=== PATIENT | female | born 1965 | race African-American/Black ===

== ENCOUNTER → 2017-05-23 | Outpatient (CLI) | payer OTHER ==
[~2017-05-23] MED LIST: ACETAMINOPHEN325 MG PO; ASPIRIN81 MG PO; BENADRYL PO; CELEXA20 MG PO; FERROUS SULFATE PO; FLEXERIL PO; IBUPROFEN PO; JANUVIA PO; K-DUR20 ME1 PO; LASIX20 MG PO; LIPITOR40 MG PO; LISINOPRIL20 MG PO; METFORMIN HCL500 M3 PO; METHOCARBAMOL500 MG PO; NEURONTIN300 MG PO; ULTRAM PO; VOLTAREN75 MG PO; ZESTRIL10 M1 PO
--- NOTE | ~2017-05-23 | CR169 ---
[facility] A Service of [facility] & [facility] RADIOLOGY TEXT RESULTS PATIENT: LADY MORA LOCATION: [facility] : 65 UNIT #: [id number] AGE: [address]: ANA ROSA CEDENO APRN SEX: F ORDER DR: [id number] [facility] [address] [place], [place] [address] [id number] O MR#: [id number] Acc #: [id number] NAME: LADY MORA : 1965 SEX: F STUDY DATE/TIME: 05/23/2017 18:36 UNIT: [facility] ROOM: STUDY DESCRIPTION: CR Knee 2 Views Lt Attending Physician: Ana Rosa Cedeno Aprn Referring Physician: Ana Rosa Cedeno Aprn Ordering Physician: Ana Rosa Cedeno Aprn Primary Care Physician: Ana Rosa Cedeno Aprn MEDICAL IMAGING REPORT This report is preliminary unless electronic signature is present EXAM Left knee HISTORY Left knee pain for the past week. No known trauma TECHNIQUE 2 views of the knee were obtained. FINDINGS There is a small osteophyte at the upper patellar pole. There is a small osteophyte along the medial joint line at the tibial plateau. There is no evidence of fracture, osteochondral fragment or chondrocalcinosis. No erosions are seen. There is no evidence of joint effusion. IMPRESSION Mild degenerative changes medial compartment and patellofemoral joint. Otherwise negative. Dictated by... Simon Addison M.D. THIS IS AN ELECTRONICALLY VERIFIED REPORT Simon Addison M.D. at 05/24/2017 4:49 PM LINDA/radha TD: 05/24/2017 13:49 JOB #: [id number] MEDICAL IMAGING REPORT Page 1 of 1 COPY
--- NOTE | ~2017-05-23 | CR170 ---
[facility] A Service of [facility] RADIOLOGY TEXT RESULTS PATIENT: LADY MORA LOCATION: [facility] : 65 UNIT #: [id number] AGE: [address]: ANA ROSA CEDENO APRN SEX: F ORDER DR: [id number] [facility] [address] [place], [place] [address] [id number] O MR#: [id number] Acc #: [id number] NAME: LADY MORA : 1965 SEX: F STUDY DATE/TIME: 05/23/2017 18:37 UNIT: [facility] ROOM: STUDY DESCRIPTION: CR Knee 2 Views Rt Attending Physician: Ana Rosa Cedeno Aprn Referring Physician: Ana Rosa Cedeno Aprn Ordering Physician: Ana Rosa Cedeno Aprn Primary Care Physician: Ana Rosa Cedeno Aprn MEDICAL IMAGING REPORT This report is preliminary unless electronic signature is present EXAM Right knee HISTORY Right knee pain for past week with no known trauma. TECHNIQUE Two views of the knee were obtained. FINDINGS Two views of the knee show moderate medial compartment narrowing with joint line osteophytes and mild compartmental narrowing in the lateral compartment with osteophyte formation. There is a moderately large osteophyte at the upper patellar pole. There is a small joint effusion. The proximal aspect of the infrapatellar tendon is ossified. No acute erosions or osteochondral fragments are seen. IMPRESSION Moderately severe osteoarthritis in all 3 compartments, worst in the medial compartment. No acute bony abnormalities are seen. Dictated by... Simon Addison M.D. THIS IS AN ELECTRONICALLY VERIFIED REPORT Simon Addison M.D. at 05/24/2017 4:49 PM RLF/chas TD: 05/24/2017 13:49 JOB #: [id number] MEDICAL IMAGING REPORT [facility] A Service of [facility] RADIOLOGY TEXT RESULTS PATIENT: LADY MORA LOCATION: [facility] #: [id number] : [birth year] UNIT #: [id number] AGE: [address]: ANA ROSA CEDENO APRN SEX: F ORDER DR: Page 1 of 1 COPY
== END | disposition home or self-care (01) ==
LOC: CRAD 18:05
DX: M25.561 Pain in right knee (principal); M25.562 Pain in left knee; M17.11 Unilateral primary osteoarthritis, right knee
CPT/HCPCS: 73560

== ENCOUNTER 2017-06-09 18:19 | Observation (INO) | payer OTHER ==
[~2017-06-09] VITALS: Ht 167.6 cm; Wt 112.5 kg
--- NOTE | ~2017-06-09 | CT71 ---
[facility] A Service of [facility] RADIOLOGY TEXT RESULTS PATIENT: LADY MORA LOCATION: [facility] 338-01 : 65 UNIT #: [id number] AGE: [address]: Fouzia Ambrocio MD SEX: F ORDER DR: [id number] [facility] [address] [place], [place] [address] [id number] I MR#: [id number] Acc #: [id number] NAME: LADY MORA : 1965 SEX: F STUDY DATE/TIME: 06/09/2017 22:03 UNIT: [facility] ROOM: 20809 STUDY DESCRIPTION: CT Head Wo Contrast Attending Physician: Raza Irizarry M.D. Ordering Physician: Jose Marcelo D.O. Primary Care Physician: Ana Rosa Dorsey Aprn MEDICAL IMAGING REPORT This report is preliminary unless electronic signature is present EXAM CT head without contrast INDICATIONS Dizziness after a fall on 06/08/[address] of the head The CT exam was performed with one or more of the following radiation dose reduction techniques: automatic exposure control, adjustment of mA and/or kV according to patient size, and iterative reconstruction. COMPARISON None FINDINGS No acute hemorrhage, abnormal mass effect, extraaxial fluid collection or hydrocephalus. No evidence for an acute or early subacute large territory infarct. No depressed calvarial fracture. Paranasal sinuses, mastoid air cells clear. IMPRESSION No acute intracranial findings. Dictated by... Mich Miller M.D. THIS IS AN ELECTRONICALLY VERIFIED REPORT Mich Miller M.D. at 06/10/2017 10:03 PM EED/jen [facility] A Service [facility] RADIOLOGY TEXT RESULTS PATIENT: LADY MORA LOCATION: [facility] 338-01 : [birth year] UNIT #: [id number] AGE: [address]: Fouzia Ambroico MD SEX: F ORDER DR: TD: 06/10/2017 09:16 JOB #: [id number] MEDICAL IMAGING REPORT Page 1 of 1 COPY
--- NOTE | ~2017-06-09 | CR72 ---
[facility] A Service of [facility] & [facility] RADIOLOGY TEXT RESULTS PATIENT: LADY MORA LOCATION: [facility] [id number] : 65 UNIT #: [id number] AGE: [address]: Raza Irizarry MD SEX: F ORDER DR: [id number] [facility] [address] [place], [place] [address] [id number] I MR#: [id number] Acc #: [id number] NAME: LADY MORA : 1965 SEX: F STUDY DATE/TIME: 06/09/2017 20:35 UNIT: [facility] ROOM: 23569 STUDY DESCRIPTION: CR Chest Single View Portable Attending Physician: Raza Irizarry M.D. Ordering Physician: Jose Marcelo D.O. Primary Care Physician: Ana Rosa Dorsey Aprn MEDICAL IMAGING REPORT This report is preliminary unless electronic signature is present EXAM Single view chest INDICATION Dizziness. Shortness of air. FINDINGS Single portable AP view of the chest without comparison. The heart and mediastinal contours are normal. Lungs are clear. No pleural effusion. IMPRESSION No acute cardiopulmonary findings. Dictated by... Panchito Wayne M.D. THIS IS AN ELECTRONICALLY VERIFIED REPORT Panchito Wayne M.D. at 06/10/2017 8:56 AM FELISHA/nelly TD: 06/10/2017 08:53 JOB #: [id number] MEDICAL IMAGING REPORT Page 1 of 1 COPY
--- NOTE | ~2017-06-09 | HP ---
Unit #: [id number] #: [id number] Patient: LADY BOSWELL [id number] [address] [place], [place] [address] [id number] I MR#: [id number] NAME: LADY BOSWELL ROOM: 20763 Age: 51 Sex: F Admission Date: 06/10/2017 : 1965 Attending Physician: Raza Irizarry M.D. Primary Care Physician: Ana Rosa Dorsey Aprn HISTORY AND PHYSICAL CHIEF COMPLAINT Lightheadedness. HISTORY OF PRESENT ILLNESS Ms. Boswell is a 51-year-old -Citizen Of [place] female who presents to the ER for above. The patient states yesterday she began feeling lightheaded but denies any true vertigo. She had a few episodes of it at home and she has had it since beginning several new medications last as will be outlined below. Yesterday, she was walking down the stairs to do laundry when she felt lightheaded, tripped and fell down the stairs. She denies any loss of consciousness but has subsequently said she is having some right neck pain primarily with turning the neck. She had no associated chest pain, no palpitations and states she is chronically short of breath with exertion since she has smoked for quite some time. She states she became concerned and, thus, presented to the emergency department. Upon presentation here, the patient's vital signs were all stable. Physical exam revealed some tenderness to palpation of the trapezius muscle of the right side but, otherwise, examination was unremarkable. White blood cell count was elevated at 16.5 and glucose was 147. She states she is not really dizzy now. She is still complaining of right neck pain. She did undergo CT scan of the head which, per ER notes, was unremarkable. Unfortunately, I am unable to get DR to pull up to confirm if this is the case. Chest x-ray was reportedly also normal. The patient was started on lisinopril, Celexa, metformin, Januvia, Lipitor, Diclofenac and methocarbamol last . She states she has not taken any methocarbamol. She states she has had headaches after taking the diabetic meds and she has only had lightheadedness since beginning these meds as well. She also notes that she took several days to take the meds because "she doesn't think anything is wrong with her." However, her aunt on and when her aunt she decided she better start taking the medicines. She states she has been under a lot of stress given several family members have been ill lately. PAST MEDICAL HISTORY 1. Recently diagnosed hypertension. 2. Recently diagnosed diabetes mellitus type 2, noninsulin requiring. Hemoglobin A1c is not available. 3. Hyperlipidemia. 4. Obstructive sleep apnea. 5. Per record review from a note from Dr. 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 Unit #: [id number] #: [id number] Patient: LADY BOSWELL PAST SURGICAL HISTORY 1. Cyst removal of the right flank at age 20. 2. Epidural blocks of the back. ALLERGIES None. The patient states she took morphine once and developed a rash but has had it since then and never developed recurrent rash. MEDICATIONS Home medications which are new include: 1. Lisinopril 20 mg daily. 2. Celexa 20 mg daily. 3. Metformin 500 mg b.i.d. 4. Januvia 100 mg daily. 5. Lipitor 40 mg daily. 6. Diclofenac 75 mg b.i.d. 7. Methocarbamol 500 mg p.o. t.i.d. FAMILY HISTORY Significant for stroke in both of patient's brothers. Obstructive sleep apnea, colon cancer, coronary artery disease and hypertension also run in the family. Per record review, patient's brother also has narcolepsy. SOCIAL HISTORY The patient has smoked over a pack of cigarettes per day for greater than almost 35 to 40 years. However, she has now cut down to six cigarettes over the past several days. She does have children. I am uncertain of employment status. No illicit drug use, no alcohol use. REVIEW OF SYSTEMS Again, some vision changes that are chronic for which she is being seen by ophthalmology in the near future. No palpitations, no chest pain. Chronic shortness of breath on exertion. No constipation, diarrhea, melena. She has had one episode of hematochezia with blood on the tissue only after a bowel movement. She has chronic knee pain for which she is being seen by Dr. Ramos with plans for some sort of surgical procedure later this week. No new skin rashes. No new tingling, numbness, weakness of extremities. She denies any lightheadedness now. Otherwise, ten point review of systems is negative. PHYSICAL EXAMINATION VITAL SIGNS: Temperature 98.0, blood pressure 125/80, pulse rate 75, respiratory rate 18. Oxygen saturation is 98% on room air. BMI is 40. GENERAL: The patient is awake, alert, oriented x3. No acute distress. HEENT: Pupils equally round, reactive to light bilaterally. Anicteric sclerae. No conjunctival pallor. Oropharynx with moist mucous membranes. No erythema or exudate. NECK: Supple. No lymphadenopathy, no thyromegaly, no JVD. Increased neck diameter noted. HEART: Regular rate and rhythm without murmur, rub or gallop. LUNGS: Mildly diminished bilaterally but otherwise clear without wheezes, rhonchi or crackles. ABDOMEN: Obese, soft, nontender, nondistended. Positive bowel sounds. No appreciable hepatosplenomegaly. EXTREMITIES: No cyanosis, clubbing, or edema. Pedal pulses 2/4. SKIN: Warm, moist, without rash. NEUROLOGIC: Cranial nerves II-XII are intact. Sensation, strength and deep tendon reflexes are all normal. Gait was not assessed. Cerebellar Unit #: [id number] #: [id number] Patient: LADY BOSWELL function appears intact as well. DIAGNOSTIC STUDIES LABORATORY: Lab work done in the emergency department last night includes white blood cell count of 16.5, hemoglobin 15.1, platelet count 288,000. Differential reveals 7% bands. Troponin was negative. CMP reveals a sodium of 138, potassium 4.2, chloride 106, bicarb 28, BUN 12, creatinine 0.9, glucose of 147. LFTs, albumin, bilirubin all normal. Urinalysis is also unremarkable. CARDIOVASCULAR: EKG in the emergency department reveals normal sinus rhythm with peaking of the P wave in lead II. IMAGING: CT scan of the head and chest x-ray in the emergency department were also reportedly unremarkable but, again, I cannot confirm this with DR. ASSESSMENT 1. Lightheadedness. 2. Status post fall without loss of consciousness. 3. Right neck strain. 4. Recently diagnosed hypertension. 5. Recently diagnosed diabetes mellitus type 2. 6. Recently diagnosed hyperlipidemia. 7. Depression with recent initiation of medication. 8. Probable obstructive sleep apnea. 9. Tobaccoism. 10. Morbid obesity. PLAN 1. Will place patient in observation under telemetry. 2. I will check carotid Doppler and 2D echo. However, I anticipate patient's lightheadedness is primarily due to medication effect. For this reason, I am going to discontinue her Januvia, decrease her dose of lisinopril and decrease her dose of Celexa given these are most likely contributing factors and will follow up lightheadedness later today. 3. Will monitor blood pressure. In all honesty, I suspect she needs a higher dose of lisinopril but may decrease on a lower dose today and have her follow up with PCP for a dose increase in the near future. 4. Will monitor blood sugars. I will provide her with an Accu-Chek machine upon discharge and will provide her with diabetic education while here. 5. Continue NSAIDs for now. 6. Will give her tramadol while here only but I don't think given her complaints, narcotics or tramadol would ultimately be in her best interest upon discharge. 7. I will decrease dose of Celexa as noted. This will need to be followed up in four to six weeks. 8. I anticipate discharge later today if ultrasounds are unremarkable. I will note - patient states she will leave today about 1:00 because she has to "play the lottery." Unit #: [id number] #: [id number] Patient: LADY BOSWELL Dictated by Fouzia Ambrocio M.D. [facility]/rosi TD: 06/10/2017 09:04 JOB #: [id number] HISTORY AND PHYSICAL Page 1 of 1 X Fouzia Ambrocio MD X HISTORY AND PHYSICAL
--- NOTE | ~2017-06-09 | DS ---
Unit #: [id number] #: [id number] Patient: LADY BOSWELL [id number] [address] [address] [id number] I MR#: [id number] NAME: LADY BOSWELL ROOM: 338 Age: 51 Sex: F Admission Date: 06/10/2017 : 1965 Discharge Date: 06/10/2017 Attending Physician: Fouzia Ambrocio M.D. Primary Care Physician: Ana Rosa Dorsey, See DISCHARGE SUMMARY PRINCIPAL DIAGNOSES 1. Lightheadedness likely medication induced. 2. Status post fall. 3. Right neck strain after a fall. 4. Hypertension. 5. Diabetes mellitus type 2 with hyperglycemia. 6. Hyperlipidemia. 7. Depression. 8. Tobaccoism. 9. Probable obstructive sleep apnea. 10. Morbid obesity. CONSULTANTS None. PROCEDURES 1. Carotid Doppler revealing negative, then 50% carotid stenoses bilaterally. Questionable enlargement of the left thyroid gland noted. 2. 2D echo which is currently pending. 3. Chest x-ray on 06/09/[address] 4[address] CT of the head without contrast on 06/09/2017 with no acute findings. CLINICAL HISTORY AND HOSPITAL COURSE Ms. Boswell is a nice 51-year-old female, who presents to the ER with lightheadedness. Please refer to H and P for further details. She was placed in observation for further evaluation. The patient underwent carotid Doppler, which was negative. She has had no further lightheadedness since some adjustment in her medication. 2D echo was done, and this results are currently pending. I will note telemetry has remained unremarkable. I will follow up 2D echo after discharge and makes some slight dose adjustments in her medications and she can follow up with her primary care provider, Ana Rosa Dorsey as an outpatient. DISCHARGE CONDITION Stable. DISCHARGE STATUS Discharged to home. DISCHARGE MEDICATIONS Lisinopril 20 mg half a tablet p.o. daily, Celexa 20 mg half a tablet p.o. daily, metformin 500 mg b.i.d., I am going to discontinue Januvia for now, Unit #: [id number] #: [id number] Patient: LADY BOSWELL Lipitor 40 mg at bedtime, diclofenac 75 mg p.o. b.i.d., I am going to hold methocarbamol. I have also provided the patient with glucometer lancets and test strips. She has also received diabetic education. DISCHARGE INSTRUCTIONS The patient was instructed to follow a diabetic diet. She can increase her activity as tolerated. FOLLOWUP The patient will follow up with Ana Rosa Dorsey in 2 weeks and can re-evaluate medication adjustments at that time. Dictated by... Fouzia Ambrocio M.D. DAVID/kd TD: 06/12/2017 06:59 JOB #: [id number] DISCHARGE SUMMARY Page 1 of 1 X Fouzia Ambrocio MD X DISCHARGE SUMMARY
--- NOTE | ~2017-06-09 | EKG ---
PATIENT: LADY MORA UNIT #: [id number] Ventricular Rate: 92 BPM Atrial Rate: 92 BPM P-R Interval: 162 ms QRS Duration: 98 ms Q-T Interval: 380 ms QTC Calculation(Bezet): 469 ms P Inman: 37 degrees Calculated R Inman: -10 degrees Calculated T Inman: 13 degrees Diagnosis Line: Normal sinus rhythm Diagnosis Line: Possible Left atrial enlargement Diagnosis Line: Borderline ECG Diagnosis Line: No previous ECGs available Diagnosis Line: Confirmed by GERMAIN BILLINGS MD ([id number]) on Diagnosis Line: 06/10/2017 8:07:28 AM INTERPRETING MD: AWA JOHNSON
--- NOTE | ~2017-06-09 | US37 ---
[facility] A Service of [facility] RADIOLOGY TEXT RESULTS PATIENT: LADY MORA LOCATION: [facility] 338-01 : [birth year] UNIT #: [id number] AGE: [address]: Fouzia Ambrocio MD SEX: F ORDER DR: [id number] [facility] [address] [place], [place] [address] [id number] I MR#: [id number] Acc #: [id number] NAME: LADY MORA : 1965 SEX: F STUDY DATE/TIME: 06/10/2017 9:31 UNIT: [address] ROOM: [facility] STUDY DESCRIPTION: US Carotid W/Doppler Bilateral Attending Physician: Fouzia Ambrocio M.D. Ordering Physician: oJse Marcelo D.O. Primary Care Physician: Ana Rosa Dorsey Aprn MEDICAL IMAGING REPORT This report is preliminary unless electronic signature is present EXAM Carotid duplex ultrasound, 06/10/2017. INDICATIONS Headache and dizziness for 3 days. Confusion over 1 week. Loss of balance for 2-3 days. Slurred speech yesterday. History of hypertension. TECHNIQUE Narvaez-scale, color flow, and Spectral Doppler waveform analysis is performed carotid vertebral vasculature. Minimal plaque is noted in the carotid bulbs. Peak velocities in the common carotid and internal carotid arteries are within the range of normal by NASCET criteria, as are the IC:CC ratios. Peak ICA systolic velocity in the right side of the neck is in the mid vessel at 0.93 m/sec. Peak ICA systolic velocity on the left side of the necks is in the proximal vessel at 0.84 m/sec. Peak external carotid velocities are normal. There is antegrade flow in the vertebral artery. Prominent soft tissue on the left side of the neck may reflect an enlarged left thyroid. Outpatient thyroid ultrasound evaluation is suggested if this has not been performed elsewhere. IMPRESSION Minimal plaque in the bulbs. Less than 50% stenosis in the ICAs by NASCET criteria. No hemodynamically significant stenosis is seen. Antegrade flow was present in the vertebral arteries. The left thyroid lobe may be enlarged. Consider outpatient thyroid ultrasound for followup, if this has not been performed elsewhere. Dictated by... Simon Smith Jr., M.D. THIS IS AN ELECTRONICALLY VERIFIED REPORT Simon Smith Jr., M.D. at 06/10/2017 5:20 PM [facility] A Service of [facility] RADIOLOGY TEXT RESULTS PATIENT: LADY MORA LOCATION: [facility] 338-01 : [birth year] UNIT #: [id number] AGE: [address]: Fouzia Ambrocio MD SEX: F ORDER DR: GABE/jaqueline TD: 06/10/2017 16:55 JOB #: [id number] MEDICAL IMAGING REPORT Page 1 of 1 COPY
[~2017-06-09 18:19] MED LIST changes: -ACETAMINOPHEN325 MG PO; -ASPIRIN81 MG PO; -CELEXA20 MG PO; -JANUVIA PO; -K-DUR20 ME1 PO; -LASIX20 MG PO; -LIPITOR40 MG PO; -LISINOPRIL20 MG PO; -METFORMIN HCL500 M3 PO; -METHOCARBAMOL500 MG PO; -NEURONTIN300 MG PO; -VOLTAREN75 MG PO; -ZESTRIL10 M1 PO
[2017-06-09 20:51] LABS: BASOPHIL# 0.2 X10e3 (0-0.3); EOSINOPHIL# 0.2 X10e3 (0-0.7); EOSINOPHIL% 1.2 % (0.0-7.0); HEMATOCRIT 45.7 % (35.0-45.0); HEMOGLOBIN 15.1 gm/dL (12.0-16.0); LYMPHOCYTE# 3.9 X10e3 (1.0-3.5); LYMPHOCYTE% 23.4 % (17.0-45.0); MEAN CELL VOLUME 89.4 FL (83-96); MEAN CORPUSCULAR HEMOGLOBIN 29.6 PG (28-34); MEAN CORPUSCULAR HGB CONC 33.2 g/dL (30-36); MEAN PLATELET VOLUME 8.8 FL (6.5-11.5); MONOCYTE# 0.7 X10e3 (0-1.0); MONOCYTE% 4.5 % (3.0-12.0); NEUTROPHIL# 11.5 X10e3 (1.5-7.1); NEUTROPHIL% 69.9 % (40-75); PLATELET COUNT 288 X10e3 (140-420); RED BLOOD COUNT 5.11 X10e (3.90-5.30); RED CELL DISTRIBUTION WIDTH 13.7 % (11.0-15.5); WHITE BLOOD COUNT 16.5 X10e3 (4.0-10.5)
[2017-06-09 20:52] LABS: DIFF IND YES
[2017-06-09 21:06] LABS: PLATELET ESTIMATE NORMAL (NORMAL)
[2017-06-09 21:07] LABS: ANISOCYTOSIS SL
[2017-06-09 21:08] LABS: POC - CKMB 1.4 ng/mL (0.0-7.9); POC - TROPONIN <0.05 ng/mL (<=0.05)
[2017-06-09 21:11] LABS: ALBUMIN SERUM 3.7 g/dL (3.5-5.0); BILIRUBIN, DIRECT 0.1 mg/dL (0.0-0.2); BILIRUBIN,INDIRECT 0.3 mg/dL (0.0-0.9); BILIRUBIN,TOTAL 0.4 mg/dL (0.2-2.0); BUN/CREATININE RATIO 13.33; CALCIUM SERUM 8.9 mg/dL (8.4-10.2); CREATININE SERUM 0.9 mg/dL (0.6-1.4); GLOM FILT RATE Estimated 85.9 mL/min (>60); POTASSIUM 4.2 mmol/L (3.5-5.1); PROTEIN TOTAL SERUM 6.6 g/dL (6.0-8.3)
[2017-06-09 21:29] LABS: URINE SOURCE CLEAN CATCH
[2017-06-09 21:35] LABS: URINE APPEARANCE CLEAR; URINE BILIRUBIN NEG (NEG); URINE BLOOD NEG (NEG); URINE COLOR YELLOW; URINE GLUCOSE NEG (NEG); URINE KETONE NEG (NEG); URINE LEUKOCYTE ESTERASE NEG (NEG); URINE NITRATE NEG (NEG); URINE PH 5.5 (5-8); URINE PROTEIN NEG (NEG)
[2017-06-09 21:38] LABS: CULTURE INDICATED? NO
[2017-06-10] MEDS ORDERED: LISINOPRIL20 MG PO (01:44)
[2017-06-10] MEDS ORDERED: JANUVIA PO (01:45)
[2017-06-10] MEDS ORDERED: METFORMIN HCL500 M3 PO (01:45)
[2017-06-10] MEDS ORDERED: CELEXA20 MG PO ×2 (01:45→14:06)
[2017-06-10] MEDS ORDERED: LIPITOR40 MG PO (01:46)
[2017-06-10] MEDS ORDERED: VOLTAREN75 MG PO (01:46)
[2017-06-10] MEDS ORDERED: METHOCARBAMOL500 MG PO (01:47)
[2017-06-10] MEDS ORDERED: ZESTRIL10 M1 PO (14:07)
== END 2017-06-10 16:06 | disposition home or self-care (01) ==
LOC: CED 18:19 → CEDOF 06-10 02:51 → CED 06-10 03:31 → CEDOF 06-10 03:31 → C3A PCU 06-10 11:22
PROVIDERS: Emergency Medicine
DX: R42 Dizziness and giddiness (principal); Z91.81 History of falling; S16.1XXA Strain of muscle, fascia and tendon at neck level, initial encounter; W01.0XXA Fall on same level from slipping, tripping and stumbling without subsequent striking against object, initial encounter; Y92.008 Other place in unspecified non-institutional (private) residence as the place of occurrence of the external cause; I51.7 Cardiomegaly; I65.29 Occlusion and stenosis of unspecified carotid artery; I10 Essential (primary) hypertension; E11.65 Type 2 diabetes mellitus with hyperglycemia; Z79.84 Long term (current) use of oral hypoglycemic drugs; E78.5 Hyperlipidemia, unspecified; K21.9 Gastro-esophageal reflux disease without esophagitis; E66.01 Morbid (severe) obesity due to excess calories; Z68.41 Body mass index [BMI] 40.0-44.9, adult; F32.9 Major depressive disorder, single episode, unspecified; F17.210 Nicotine dependence, cigarettes, uncomplicated; G47.33 Obstructive sleep apnea (adult) (pediatric); Z79.899 Other long term (current) drug therapy; J30.9 Allergic rhinitis, unspecified; Z82.3 Family history of stroke; Z80.0 Family history of malignant neoplasm of digestive organs; Z82.49 Family history of ischemic heart disease and other diseases of the circulatory system
CPT/HCPCS: 36415; 70450; 71010; 80048; 80076; 81003; 82553; 82947; 84443; 84484; 84703; 85025; 93005; 93306; 93880; 99285; G0378

== ENCOUNTER 2017-07-01 19:07 | Observation (INO) | payer OTHER ==
[~2017-07-01] VITALS: Ht 165.1 cm; Wt 110.2 kg
--- NOTE | ~2017-07-01 | DS ---
Unit #: [id number] #: [id number] Patient: LADY MORA [id number] [address] [address] [id number] MR#: [id number] NAME: LADY MORA ROOM: 564 Age: 51 Sex: F Admission Date: 07/02/2017 : 1965 Discharge Date: 07/02/2017 Attending Physician: Heidi Wilson M.D. Primary Care Physician: Ana Rosa Dorsey Aprn DISCHARGE SUMMARY SHORT-STAY SUMMARY CHIEF COMPLAINT Left-sided headache and left upper extremity pain. HISTORY OF PRESENTING ILLNESS Miss Alicia is a 51-year-old morbidly obese female, came because she was driving, she had started having left-sided headache which was radiating to the neck and even the left upper chest area. It was coming off and on. Intensity of the pain was severe. Level of pain was 8 to 9/10. She has had this kind of problem in the past. Last time it was on the right side. Per patient, she has history of migraine, although no medications at this time. Patient has history of diabetes. According to her, is very well controlled although she does have tingling sensation in bilateral feet, most likely has neuropathy from diabetes. She is requesting some medication for it. At this time patient has no chest pain, no shortness of breath, no headache, no visual changes, no ear, nose or throat changes. Patient had stress test done. Results are pending. Patient does complain of some anxiety and palpitation. She does not complain of any chest pressure. PAST MEDICAL HISTORY 1. History of hypertension. 2. Diabetes mellitus type 2. 3. Hyperlipidemia. 4. Obstructive sleep apnea. 5. Possible migraine. 6. Possible diabetic neuropathy. 7. Tobacco abuse. PAST SURGICAL HISTORY 1. History of right flank cyst removal. 2. Epidural block. ALLERGIES Morphine. FAMILY HISTORY The patient's brother had stroke. There is also a family history of colon cancer and coronary artery disease. SOCIAL HISTORY Patient is a smoker. She had quit smoking in the past but she started Unit #: [id number] #: [id number] Patient: LADY MORA again, two to three cigarettes a day. She has smoked for more than 30 years in the past. According to the patient, she works. She works in the restaurant and walks around a lot. HOME MEDICATIONS Home medications are as per med rec which has been reviewed. REVIEW OF SYMPTOMS No history of numbness at this time of the upper extremities or the lower extremities. No complaint of decreased strength. The rest is as per history of presenting illness. PHYSICAL EXAMINATION GENERAL APPEARANCE: Patient is lying in bed, no respiratory distress. VITAL SIGNS: Blood pressure is 119/65. Respiratory rate 18. Pulse is 73. Temperature 98.6. Oxygen saturation is 98%. HEENT: Head is normocephalic. Eye movements are normal. NECK: Neck is supple. CHEST: Has fair air entry, no additional sounds. CVS: S1, S2 positive, regular rhythm. ABDOMEN: Soft. EXTREMITIES: Trace edema. SILO OPERATOR: Patient is awake, alert, oriented x3. Does not seem to have any focal neurological deficit. DIAGNOSTIC STUDIES LABORATORY WORKUP: WBC 13.9, hemoglobin 13.7, hematocrit 40.6 and platelet count of 313, PT and INR is 10.7 and 1.0, troponin less than 0.05, sodium 140, potassium 3.4, chloride 107, BUN 7, creatinine 0.7, liver enzymes are normal, troponin is less than 0.05. Lipid profile was done which shows total cholesterol 94, LDL 48. IMAGING: Chest x-ray single view was done and that shows normal portable chest. MRI of the head without contrast was done which shows no acute stroke, space occupying intracranial mass, mass effect, midline shift or hydrocephalus. There are scattered few small hyperintense T2-signal lesions are noted in the brain, predominantly involving the white matter in the bifrontal lobes, likely related to mild chronic microvascular ischemic changes or migraine based on age and statistics. HOSPITAL COURSE A 51-year-old female was admitted to the [facility] telemetry unit with chest pain, left upper extremity numbness and weakness and headache. According to patient those symptoms are resolved. MRI was done. Findings are as above. Patient will need to see neurologist as outpatient. Aspirin 81 mg p.o. daily is being started. Patient may need outpatient migraine treatment. Acute myocardial infarction was ruled out. Patient had a radionuclide stress test done. Results are still pending. If it is normal, patient will be discharged home. The patient's blood pressure was elevated. Blood pressure medications have been adjusted. Prescription will be returned. Patient does complain of neuropathy. There is a possibility of diabetic Unit #: [id number] #: [id number] Patient: LADY MORA neuropathy. Patient is requesting medications. We are going to write gabapentin 300 mg p.o. q.h.s. Side effect of medication has been discussed with patient. Dose can be increased as outpatient. DISCHARGE MEDICATIONS 1. Celexa 20 mg daily. 2. Metformin 500 mg b.i.d. 3. Januvia 100 mg daily. 4. Lipitor 40 mg daily. 5. Zestril 20 mg daily. 6. Aspirin 81 mg daily. 7. Diclofenac p.r.n. 8. Gabapentin 300 mg q.h.s. DISCHARGE INSTRUCTIONS 1. Patient is being discharged home if stress test is normal. 2. Medication as per med rec. 3. Follow up with primary care provider in one week. 4. Tobacco cessation counseling done. 5. BMP in one week to evaluate hypokalemia as potassium was replaced during hospitalization. 6. Follow up with neurologist Dr. Strickland as outpatient for MRI findings plus migraine treatment. Dictated by... Edel Pressley/roosevelt TD: 07/02/2017 22:45 JOB #: [id number] DISCHARGE SUMMARY Page 1 of 1 X Heidi Wilson MD X DISCHARGE SUMMARY
--- NOTE | ~2017-07-01 | EKG ---
PATIENT: LADY MORA UNIT #: [id number] Ventricular Rate: 82 BPM Atrial Rate: 82 BPM P-R Interval: 172 ms QRS Duration: 100 ms Q-T Interval: 390 ms QTC Calculation(Bezet): 455 ms P [place]: 41 degrees Calculated R [place]: -16 degrees Calculated T [place]: 7 degrees Diagnosis Line: Normal sinus rhythm Diagnosis Line: Normal ECG Diagnosis Line: No previous ECGs available Diagnosis Line: Confirmed by CYNDI SAMSON MD ([id number]) on 07/02/2017 Diagnosis Line: 11:49:09 PM INTERPRETING MD: CHAPIN JOHNSON
--- NOTE | ~2017-07-01 | MR18 ---
[facility] A Service of [facility] & [facility] RADIOLOGY TEXT RESULTS PATIENT: LADY MORA LOCATION: [facility] 564-01 : [birth year] UNIT #: [id number] AGE: [address]: Heidi Wilson MD SEX: F ORDER DR: [id number] [facility] [address] [place], [place] [address] [id number] I MR#: [id number] #: [id number] NAME: LADY MORA : 1965 SEX: F STUDY DATE/TIME: 07/01/2017 20:47 UNIT: [facility] ROOM: [facility] STUDY DESCRIPTION: MR Brain Wo Contrast Attending Physician: Heidi Wilson M.D. Ordering Physician: Jose Marcelo D.O. Primary Care Physician: Ana Rosa Dorsey Aprn MRI CENTER REPORT This report is preliminary unless electronic signature is present. EXAM MRI of the brain without contrast dated 07/01/2017. COMPARISON CT head without contrast dated 06/09/2017. HISTORY Headaches for 3 weeks, worse today since known with left arm weakness. Patient fell, but states it is unrelated. TECHNIQUE Multisequence multiplanar imaging of the brain was obtained without contrast. FINDINGS No acute stroke, space-occupying intracranial mass, mass effect, midline shift or hydrocephalus is seen. Vascular flow voids of the major cerebral arteries and dural venous sinuses are not completely occluded in these thicker slices. Scattered few small less than 1 cm hyperintense T2-signal lesions are noted in the white matter. S-shaped nasal septal deviation is seen. Paranasal sinuses and mastoid air cells are well-aerated. Orbits and the ocular structures do not demonstrate any significant abnormality. Thick slices through the sella, the pituitary gland and pineal region are unremarkable. Mild degenerative changes are noted in the cervical spine. IMPRESSION 1. No acute stroke, space-occupying intracranial mass, mass effect, midline shift or hydrocephalus. 2. Scattered few small hyperintense T2-signal lesions are noted in the brain, predominately involving the white matter in bifrontal lobes, likely related to mild chronic microvascular ischemic change or migraine based on age and statistics. Nonspecific. Other white matter lesions and diseases are in the differential consideration. [facility] A Service of [facility] & [facility] RADIOLOGY TEXT RESULTS PATIENT: LADY MORA LOCATION: [facility] 564-01 : [birth year] UNIT #: [id number] AGE: [address]: Heidi Wilson MD SEX: F ORDER DR: They do not have any significant mass effect or associated hemorrhage. Dictated by... Karri Bryant M.D. THIS IS AN ELECTRONICALLY VERIFIED REPORT Karri Bryant M.D. at 07/03/2017 3:21 PM CPR/gz TD: 07/02/2017 11:13 JOB #: [id number] MRI CENTER REPORT Page 1 of 1 COPY
--- NOTE | ~2017-07-01 | EKG ---
PATIENT: LADY MORA UNIT #: [id number] Ventricular Rate: 76 BPM Atrial Rate: 76 BPM P-R Interval: 182 ms QRS Duration: 100 ms Q-T Interval: 410 ms QTC Calculation(Bezet): 461 ms P [place]: 41 degrees Calculated R [place]: -8 degrees Calculated T [place]: 11 degrees Diagnosis Line: Normal sinus rhythm Diagnosis Line: Normal ECG Diagnosis Line: When compared with ECG of 01-JUL-2017 19:49, Diagnosis Line: (unconfirmed) Diagnosis Line: No significant change was found Diagnosis Line: Confirmed by CYNDI SAMSON MD ([id number]) on 07/02/2017 Diagnosis Line: 11:58:17 PM INTERPRETING MD: CHAPIN JOHNSON
--- NOTE | ~2017-07-01 | TH ---
Unit #: [id number] #: [id number] Patient: LADY MORA [id number] [address] [address] [id number] I MR#: [id number] NAME: LADY MORA : 1965 SEX: F STUDY DATE/TIME: 07/02/2017 UNIT: [facility] ROOM: 564 STUDY DESCRIPTION: Attending Physician: Heidi Wilson M.D. Primary Care Physician: Ana Rosa Dorsey Aprn CARDIOLOGY REPORT EXAM Exercise Cardiolite stress test, nuclear portion. PROCEDURE Using technetium 99m labeled Cardiolite, rest and stress SPECT images were obtained. Multiple SPECT images were obtained in various views including horizontal and vertical long axis and short axis views of the left ventricle. Images were obtained by gated SPECT method. The patient was administered 11.39 mCi of Cardiolite at rest. The patient was administered 33.6 mCi of Cardiolite at peak exercise. Total exercise time is 5 minutes. On the stress images, there is normal perfusion noted. The rest images show normal perfusion. Comparing rest and stress images, there is no stress-induced ischemia noted. The left ventricular ejection fraction is calculated to be 56%. There is no focal wall motion abnormality seen. CONCLUSION 1. No stress-induced ischemia noted. 2. The left ventricular ejection fraction is calculated to be 56%. 3. There is no focal wall motion abnormality seen. 4. Normal exercise Cardiolite stress test. 5. Technically limited study due to patient's body habitus. Clinical correlation is requested. Dictated by... Edel Bradley TD: 07/02/2017 16:56 JOB #: [id number] Unit #: [id number] #: [id number] Patient: LADY MORA CARDIOLOGY REPORT Page 1 of 1 X Indiana Santana MD <ELECTRONICALLY SIGNED> 08/15/17 1524 CARDIOLOGY REPORT
--- NOTE | ~2017-07-01 | CO ---
Unit #: [id number] #: [id number] Patient: LADY MORA [id number] [address] [place], [place] [address] [id number] I MR#: [id number] NAME: LADY MORA ROOM: 564 Age: 51 Sex: F Admission Date: 07/02/2017 : 1965 Attending Physician: Heidi Wilson M.D. Primary Care Physician: Ana Rosa Dorsey Aprn Consultation Date: 07/02/2017 CONSULTATION REPORT REASON FOR CONSULTATION Chest pain. HISTORY OF PRESENT ILLNESS This is a 51-year-old female with a prior history of hypertension, diabetes mellitus, hyperlipidemia, obstructive sleep apnea, morbid obesity with the BMI of 40, GERD, and daily tobacco abuse. She presented to the ER with reports of left side of her face pain, described as sharp around her left eye as well as headache. She states the pain spread down to her left shoulder and arm, and then down into the left side of her body. She states she did experience some anxiety and palpitations with the pain. Denies chest pressure or tightness with the episode. Denies chest pain with the episode. She states it felt the same as the pain she was admitted in 04/28, just at the different side of her body. In April, a CT of the head and carotid Dopplers were negative. She had an MRI today. Her EKG and troponins are negative ischemia. She denies ever having any chest pain. She states she is not very active, but she is able to go up one to two flight of stairs without any chest pain or shortness of breath. She does report ongoing pain in her feet and hands, described as pins and needles feeling. She states her primary care doctor is working on getting her cream for peripheral neuropathy. PAST MEDICAL HISTORY 1. Hypertension. 2. Diabetes mellitus type 2. 3. Hyperlipidemia. 4. Obstructive sleep apnea. 5. Morbid obesity with the BMI of 40. 6. GERD. 7. Tobacco abuse. 8. Carotid Doppler with bilateral 50% stenosis in April 2017. 9. Probable diabetic neuropathy. 10. Seizures at the age of 14, none since. PAST SURGICAL HISTORY 1. Right flank cyst removable. 2. Epidural block. FAMILY HISTORY Denies family history of premature coronary artery disease. SOCIAL HISTORY Unit #: [id number] #: [id number] Patient: LADY MORA She is smoker, states she has been smoking off and on since she was 19. She smoked 1 pack per day until recently, now she is down to 3 to 4 per day. She denies alcohol or illicit drug use. ALLERGIES She is allergic to morphine. HOME MEDICATIONS 1. Metformin 500 p.o. twice a day. 2. Lipitor 40 mg p.o. daily. 3. Diclofenac sodium 75 mg p.o. twice a day. 4. Celexa half a tablet once a day. 5. Zestril 10 mg p.o. daily. 6. Januvia 100 mg p.o. daily. REVIEW OF SYSTEMS A 10-point review of systems was conducted and was otherwise negative except for what was stated in the HPI. PHYSICAL EXAMINATION VITAL SIGNS: Temperature 98.1, heart rate 71, respiratory rate 19, and blood pressure 122/69. GENERAL: Alert and oriented x3, a 51-year-old female, resting in bed, in no acute distress. HEENT: Head is atraumatic and normocephalic. Pupils are equal and round. Mucous membranes are moist and intact. NECK: Supple. Trachea is midline. No JVD. LUNGS: Clear and diminished in bases. Nonlabored respirations. HEART: S1 and S2. Regular rate and rhythm. No significant murmurs, rubs, or gallops. ABDOMEN: Soft, nontender, and nondistended. EXTREMITIES: Pulses are palpable. No pedal edema. No cyanosis. NEUROLOGIC: Alert and oriented x3. Moves all extremities equally and follows all commands without difficulty. DIAGNOSTIC STUDIES LABORATORY RESULTS: TSH in April 2017 was normal at 1.92. Sodium 140, potassium 3.4, chloride 107, BUN 7, creatinine 0.6, glucose 197. Hemoglobin 13.7, hematocrit 40.6, white blood cell count 13.9, platelets 313. Point of care troponin was less than 0.05. IMAGING STUDIES: Chest x-ray shows normal portable chest with no active disease. CARDIOVASCULAR STUDIES: EKG shows normal sinus rhythm with nonspecific T-wave abnormalities and poor R-wave progression with the ventricular rate of 78. ASSESSMENT 1. Left eye and left-sided body pain, no chest pain. 2. Palpitations. 3. Diabetes mellitus type 2. 4. Hypertension. 5. Hyperlipoidemia. 6. Obstructive sleep apnea, does not use CPAP. 7. Tobacco abuse. 8. Obesity, BMI of 40. 9. Depression. Unit #: [id number] #: [id number] Patient: LADY MORA 10. Gastroesophageal reflux disease. 11. Hypokalemia. PLAN 1. Aspirin 81 mg once a day. 2. Replace potassium. 3. In light of her ischemic risk factors of hypertension, diabetes, hyperlipidemia, and tobacco abuse, we will proceed with an exercise Cardiolite stress test today. If the stress test is negative, no further ischemic workup will be done. 4. Educated on importance of smoking cessation and encouraged to quit smoking. Thank you for asking us to see this patient. We appreciate the consult. Dictated by... Mayra Cameron APRN for Edel Bradley/kd TD: 07/04/2017 13:35 JOB #: [id number] CONSULTATION REPORT Page 1 of 1 X X CONSULTATION REPORT
--- NOTE | ~2017-07-01 | ST ---
Unit #: [id number] #: [id number] Patient: LADY MORA [id number] [address] [place], [place] [address] [id number] I MR#: [id number] NAME: LADY MORA : 1965 SEX: F STUDY DATE/TIME: 07/02/2017 UNIT: [facility] ROOM: 564 STUDY DESCRIPTION: Attending Physician: Heidi Wilson M.D. Primary Care Physician: Ana Rosa Dorsey Aprn CARDIOLOGY REPORT EXAM Exercise Cardiolite stress test. FINDINGS Baseline EKG showed normal sinus rhythm with a rate of 67 beats per minute. There is poor R wave progression and low voltage QRS in the inferior leads, as well as V3-V6. The patient exercised on the treadmill using Felipe protocol for 5 minutes achieving a workload of 6.9 METS. She reached 97% of the maximal age-predicted heart rate at 164 beats per minute with a maximum blood pressure response of 240/80 mmHg. Patient had no complaint of chest pain but noted to have some shortness of breath and bilateral hip pain. EKG during exercise showed [address] depression in the anterolateral leads with upsloping T wave segment. This resolved in recovery phase. The test was terminated secondary to achieving target heart rate and hip pain. IMPRESSION 1. Functional class II with a workload of 6.9 METS with fair exercise tolerance. 2. The patient reached 97% of the maximal age-predicted heart rate at 164 beats per minute with a hypertensive blood pressure response. 3. The patient had no complaints of chest pain, palpitations, or dizziness. She had complaints of shortness of breath and hip pain. 4. EKG during exercise showed ST depression with upsloping T wave segment in the anterolateral leads that resolved in the recovery phase. Was noted for isolated premature ventricular complex. 5. Cardiolite was injected at peak exercise with radionuclide test pending. Please correlate these results with nuclear images. 1. Dictated by... Tolu Germain A.P.R.N. for Edel Bradley/les TD: 07/02/2017 16:11 JOB #: [id number] Unit #: [id number] #: [id number] Patient: ABBYLADY CARDIOLOGY REPORT Page 1 of 1 X Tolu Germain APRN CARDIOLOGY REPORT
--- NOTE | ~2017-07-01 | CR72 ---
[facility] A Service of [facility] & [facility] RADIOLOGY TEXT RESULTS PATIENT: LADY MORA LOCATION: [facility] 564-01 : [birth year] UNIT #: [id number] AGE: [address]: Heidi Wilson MD SEX: F ORDER DR: [id number] [facility] [address] [place], [place] [address] [id number] I MR#: [id number] Acc #: [id number] NAME: LADY MORA : 1965 SEX: F STUDY DATE/TIME: 07/01/2017 20:01 UNIT: [facility] ROOM: [facility] STUDY DESCRIPTION: CR Chest Single View Portable Attending Physician: Heidi Wilson M.D. Ordering Physician: Jose Marcelo D.O. Primary Care Physician: Ana Rosa Dorsey Aprn MEDICAL IMAGING REPORT This report is preliminary unless electronic signature is present EXAM Single view of the chest dated 07/01/2017. COMPARISON Single view chest dated 06/09/2017. HISTORY Chest pain which radiates to the left arm, shortness of air today. TECHNIQUE Single view of the chest was obtained. FINDINGS A single AP portable view of the chest shows both lungs to be clear. The heart is normal in size. The mediastinal contour is normal. No significant bone abnormalities are seen. IMPRESSION Normal portable chest. Dictated by... Karri Bryant M.D. THIS IS AN ELECTRONICALLY VERIFIED REPORT Karri Bryant M.D. at 07/03/2017 3:19 PM CPR/gz TD: 07/02/2017 10:25 JOB #: [id number] MEDICAL IMAGING REPORT Page 1 of 1 COPY
--- NOTE | ~2017-07-01 | BMI ---
[facility] Nutrition Therapy DATE: 07/02/17 Patient: LADY MCCLELLANKPATRICK Physician: DEEPTHI Address: [address] Room/Bed: [address] [place] [address], Zip: [place] [address] Admit Date: 07/02/17 Date of : [birth year] Height: 5 5 Weight: 242 110.2 HIGH BMI NOTE: DX: 51 Y.O. FEMALE ADMITTED FOR CHEST PAIN ANTHROPOMETRICS: 5'5", WT: 242# (110 KG), BMI: 40.3 DIET: CC RECOMMENDATIONS: 1. RECOMMEND TO ADD HH TO CURRENT DIET ORDER ABOVE TO PROMOTE GRADUAL WEIGHT LOSS TOWARDS HEALTHY BMI (19.0-25.0) OR +/-10%IBW RD WILL F/U PER PROTOCOL Respectfully, BAYLEE ROMEO MS, RD, LD [facility] cc: client file
[~2017-07-01 19:07] MED LIST changes: +CELEXA20 MG PO; +JANUVIA PO; +LIPITOR40 MG PO; +LISINOPRIL20 MG PO; +METFORMIN HCL500 M3 PO; +METHOCARBAMOL500 MG PO; +VOLTAREN75 MG PO; +ZESTRIL10 M1 PO
[2017-07-01 19:53] LABS: BASOPHIL# 0.2 X10e3 (0-0.3); BASOPHIL% 1.4 % (0-2.5); DIFF IND NO; EOSINOPHIL# 0.2 X10e3 (0-0.7); EOSINOPHIL% 1.7 % (0.0-7.0); HEMATOCRIT 40.6 % (35.0-45.0); HEMOGLOBIN 13.7 gm/dL (12.0-16.0); LYMPHOCYTE# 3.2 X10e3 (1.0-3.5); LYMPHOCYTE% 22.9 % (17.0-45.0); MEAN CELL VOLUME 88.8 FL (83-96); MEAN CORPUSCULAR HGB CONC 33.8 g/dL (30-36); MEAN PLATELET VOLUME 8.5 FL (6.5-11.5); MONOCYTE# 0.8 X10e3 (0-1.0); MONOCYTE% 5.6 % (3.0-12.0); NEUTROPHIL# 9.5 X10e3 (1.5-7.1); NEUTROPHIL% 68.4 % (40-75); PLATELET COUNT 313 X10e3 (140-420); RED BLOOD COUNT 4.57 X10e (3.90-5.30); RED CELL DISTRIBUTION WIDTH 13.7 % (11.0-15.5); WHITE BLOOD COUNT 13.9 X10e3 (4.0-10.5)
[2017-07-01 20:02] LABS: PARTIAL THROMBOPLASTIN TIME 26.1 SECONDS (23.5-31.3); PROTHROMBIN TIME (PATIENT) 10.7 SECONDS (10.0-11.7)
[2017-07-01 20:05] LABS: POC - CKMB 1.5 ng/mL (0.0-7.9); POC - TROPONIN <0.05 ng/mL (<=0.05)
[2017-07-01 20:10] LABS: ALBUMIN SERUM 3.5 g/dL (3.5-5.0); BILIRUBIN, DIRECT 0.1 mg/dL (0.0-0.2); BILIRUBIN,INDIRECT 0.6 mg/dL (0.0-0.9); BILIRUBIN,TOTAL 0.7 mg/dL (0.2-2.0); BUN/CREATININE RATIO 11.66; CALCIUM SERUM 8.5 mg/dL (8.4-10.2); CREATININE SERUM 0.6 mg/dL (0.6-1.4); GLOM FILT RATE Estimated 122.3 mL/min (>60); POTASSIUM 3.4 mmol/L (3.5-5.1); PROTEIN TOTAL SERUM 6.3 g/dL (6.0-8.3)
[2017-07-01 21:36] LABS: POC - CKMB 1.2 ng/mL (0.0-7.9); POC - TROPONIN <0.05 ng/mL (<=0.05)
[2017-07-02] MEDS ORDERED: JANUVIA PO (01:19)
[2017-07-02 07:41] LABS: CHOLESTEROL 94 mg/dL (0-200); HDL CHOLESTEROL 29 mg/dL (35-95); LDL CHOLESTEROL 48 mg/dL (-130); LDL/HDL RATIO 2 RATIO (0-4); TRIGLYCERIDES 84 mg/dL (10-160)
[2017-07-02] MEDS ORDERED: ACETAMINOPHEN325 MG PO (16:56)
[2017-07-02] MEDS ORDERED: ASPIRIN81 MG PO (17:00)
[2017-07-02] MEDS ORDERED: NEURONTIN300 MG PO (17:03)
[2017-07-02] MEDS ORDERED: K-DUR20 ME1 PO (17:04)
[2017-07-02] MEDS ORDERED: LASIX20 MG PO (17:08)
== END 2017-07-02 18:28 | disposition home or self-care (01) ==
LOC: CED 19:07 → CEDOF 19:47 → CED 07-02 01:33 → CEDOF 07-02 02:22 → C5C 07-02 02:22
PROVIDERS: Emergency Medicine; Physician Assistant Medical
DX: R51 Headache (principal); H57.12 Ocular pain, left eye; R07.9 Chest pain, unspecified; R20.0 Anesthesia of skin; E66.01 Morbid (severe) obesity due to excess calories; Z68.41 Body mass index [BMI] 40.0-44.9, adult; E11.9 Type 2 diabetes mellitus without complications; Z79.84 Long term (current) use of oral hypoglycemic drugs; E78.5 Hyperlipidemia, unspecified; G47.33 Obstructive sleep apnea (adult) (pediatric); I10 Essential (primary) hypertension; F17.210 Nicotine dependence, cigarettes, uncomplicated; K21.9 Gastro-esophageal reflux disease without esophagitis
CPT/HCPCS: 36415; 70551; 71010; 78452; 80048; 80061; 80076; 82553; 82947; 84484; 85025; 85610; 85730; 93005; 93017; 96374; 96375; 99285; A9500; G0378; J1200; J1815; J2765